=== PATIENT | female | born 1980 | race Asian ===

== ENCOUNTER 2017-09-19 23:50 | Emergency (ER) | payer MEDICAID ==
[~2017-09-19] VITALS: Ht 154.9 cm; Wt 54.0 kg
[2017-09-20 01:37] LABS: ANION GAP 11 mmol/L (8-16); CALCIUM, TOTAL 9.5 mg/dL (8.8-10.5); CARBON DIOXIDE 26 mmol/L (22-29); CHLORIDE 99 mmol/L (98-107); CREATININE 1.39 mg/dL (0.60-1.30); GLOMERULAR FILTR. RATE CALC 42 mL/min (>60); GLUCOSE,RANDOM 131 mg/dL (70-110); POTASSIUM 3.8 mmol/L (3.5-5.1); SODIUM SERUM 136 mmol/L (136-145); UREA NITROGEN, BLOOD 20 mg/dL (7-18)
[2017-09-20 01:42] LABS: BASOPHILS % (AUTO) 0.3 % (0.0-2.0); EOSINOPHILS % (AUTO) 0.1 % (1.0-6.0); HEMATOCRIT 44.8 % (36-46); HEMOGLOBIN 15.6 g/dL (12.0-16.0); LYMPHOCYTES # (AUTO) 1.2 K/uL (1.0-4.8); LYMPHOCYTES % (AUTO) 10.1 % (22.0-44.0); MEAN CORPUSCULAR HEMOGLOBIN 31.8 pg (26.0-34.0); MEAN CORPUSCULAR HGB CONC 34.9 G/dL (31.0-37.0); MEAN CORPUSCULAR VOLUME 91 fL (80-100); MONOCYTES % (AUTO) 8.9 % (2.0-9.0); NEUTROPHILS # (AUTO) 9.3 K/uL (1.8-7.7); NEUTROPHILS % (AUTO) 80.6 % (40.0-70.0); PLATELET COUNT (AUTO) 215 K/uL (150-450); RED BLOOD CELL COUNT(AUTO) 4.93 MIL/uL (4.00-5.20); RED CELL DISTRIBUTION WIDTH 13.6 % (11.5-14.5)
[2017-09-20 01:43] LABS: ALANINE AMINOTRANSFERASE 24 U/L (12-78); ALBUMIN 4.8 g/dL (3.4-5.0); ALKALINE PHOSPHATASE 69 U/L (46-116); ASPARTATE AMINOTRANSFERASE 20 U/L (15-37); TOTAL PROTEIN, SERUM 8.7 g/dL (6.4-8.2)
[2017-09-20 03:07] LABS: AMPHET/METH SCREEN,URINE POSITIVE (NEGATIVE); BARBITURATE SCREEN, URINE NEGATIVE (NEGATIVE); BENZODIAZEPINES SCREEN,URINE NEGATIVE (NEGATIVE); CANNABINOID SCREEN,URINE NEGATIVE (NEGATIVE); COCAINE SCREEN,URINE NEGATIVE (NEGATIVE); METHADONE SCREEN, URINE NEGATIVE (NEGATIVE); OPIATE SCREEN,URINE NEGATIVE (NEGATIVE)
[2017-09-20 03:08] LABS: PHENCYCLIDINE SCREEN,URINE NEGATIVE (NEGATIVE)
[2017-09-20 04:31] VITALS: BP 131/75
== END 2017-09-20 06:07 | disposition home or self-care (01) ==
LOC: EMS 23:51
DX: F41.9 Anxiety disorder, unspecified (principal); R45.851 Suicidal ideations; F15.10 Other stimulant abuse, uncomplicated; I10 Essential (primary) hypertension; F32.9 Major depressive disorder, single episode, unspecified; F17.210 Nicotine dependence, cigarettes, uncomplicated
CPT/HCPCS: 36415; 80053; 80307; 84703; 85025; 99285; 99406; G0480

== ENCOUNTER 2018-02-03 22:23 | Inpatient (IN) | payer MEDICAID ==
[~2018-02-03] VITALS: Ht 160 cm; Wt 60.5 kg
[2018-02-03 22:47] LABS: BASOPHILS % (AUTO) 0.6 % (0.0-2.0); EOSINOPHILS % (AUTO) 0.6 % (1.0-6.0); HEMATOCRIT 44.2 % (36-46); HEMOGLOBIN 15.4 g/dL (12.0-16.0); LYMPHOCYTES # (AUTO) 2.2 K/uL (1.0-4.8); LYMPHOCYTES % (AUTO) 24.9 % (22.0-44.0); MEAN CORPUSCULAR HEMOGLOBIN 32.6 pg (26.0-34.0); MEAN CORPUSCULAR VOLUME 93 fL (80-100); MONOCYTES # (AUTO) 0.5 K/uL (0.1-1.0); MONOCYTES % (AUTO) 5.4 % (2.0-9.0); NEUTROPHILS # (AUTO) 6.1 K/uL (1.8-7.7); NEUTROPHILS % (AUTO) 68.5 % (40.0-70.0); PLATELET COUNT (AUTO) 257 K/uL (150-450); RED BLOOD CELL COUNT(AUTO) 4.73 MIL/uL (4.00-5.20)
[2018-02-03 22:55] LABS: CALCIUM, TOTAL 9.7 mg/dL (8.8-10.5); CREATININE 1.21 mg/dL (0.60-1.30)
[2018-02-03 23:01] LABS: ALBUMIN 4.4 g/dL (3.4-5.0); BILIRUBIN,TOTAL 0.6 mg/dL (0.1-1.0); TOTAL PROTEIN, SERUM 8.4 g/dL (6.4-8.2)
[2018-02-03 23:08] LABS: AMPHET/METH SCREEN,URINE NEGATIVE (NEGATIVE); BARBITURATE SCREEN, URINE NEGATIVE (NEGATIVE); BENZODIAZEPINES SCREEN,URINE NEGATIVE (NEGATIVE); CANNABINOID SCREEN,URINE NEGATIVE (NEGATIVE); COCAINE SCREEN,URINE NEGATIVE (NEGATIVE); METHADONE SCREEN, URINE NEGATIVE (NEGATIVE); OPIATE SCREEN,URINE NEGATIVE (NEGATIVE); PHENCYCLIDINE SCREEN,URINE NEGATIVE (NEGATIVE)
[2018-02-03] MEDS ORDERED: LORazepam 1 MG TABLET PO ONE (23:45)
[2018-02-03] MEDS ORDERED: POTASSIUM CHLORIDE 20 MEQ ER TABLET PO ONE (23:45)
[2018-02-03] MEDS ORDERED: LORazepam 2 MG TABLET PO PRN (23:45)
[2018-02-03] MEDS ORDERED: ZOLPIDEM TARTRATE 10 MG TABLET PO PRN (23:45)
[2018-02-03] MEDS ORDERED: HALOPERIDOL 5 MG TABLET PO PRN (23:45)
[2018-02-04 00:02] LABS: HEMOGLOBIN A1C 5.4 % (4.5-6.2)
[2018-02-04 00:11] LABS: CHOL/HDL RATIO 3.2 (3.9-5.7); FREE T4 (FREE THYROXINE) 1.15 ng/dL (0.76-1.46); THYROID STIMULATING HORMONE 2.22 uIU/mL (0.36-3.74)
[2018-02-04 03:42] VITALS: BP 156/95
[2018-02-04] MEDS ORDERED: ACETAMINOPHEN 325 MG TABLET PO PRN (06:15)
[2018-02-04] MEDS ORDERED: PETROLATUM,WHITE 71 GM JELLY TP PRN (06:15)
[2018-02-04] MEDS ORDERED: CloNIDine HCL 0.1 MG TABLET PO PRN (06:15)
[2018-02-04] MEDS ORDERED: MAGNESIUM HYDROXIDE SUSPENSION 30 ML UDCUP PO PRN (06:15)
[2018-02-04] MEDS ORDERED: MAG HYDROX/AL HYDROX/SIMETH ES 30 ML SUSPENSION UDCUP PO PRN (06:15)
[2018-02-04] MEDS ORDERED: ALBUTEROL SULFATE HFA 90 MCG/PUFF 8 GM INHALER IH PRN (06:15)
[2018-02-04] MEDS ORDERED: NICOTINE 14 MG/24 HOUR PATCH TD PRN (06:15)
[2018-02-04] MEDS ORDERED: GuaiFENesin/D-METHORPHAN [SUGAR-FREE] 200-20MG/10 ML SYRUP UDCUP PO PRN (06:15)
[2018-02-04] MEDS ORDERED: DOCUSATE SODIUM 100 MG CAPSULE PO PRN (06:15)
[2018-02-04] MEDS ORDERED: IBUPROFEN 400 MG TABLET PO PRN (06:15)
[2018-02-04] MEDS ORDERED: ONDANSETRON HCL 4 MG TABLET PO PRN (06:15)
[2018-02-04] MEDS ORDERED: LOPERAMIDE HCL 2 MG CAPSULE PO PRN (06:15)
[2018-02-04 08:19] VITALS: BP 181/110
[2018-02-04 09:19] VITALS: BP 147/97
[2018-02-04 21:07] VITALS: BP 142/95
[2018-02-05 06:12] VITALS: BP 148/102
[2018-02-05 08:00] VITALS: BP 147/111
[2018-02-05] MEDS: AmLODIPine BESYLATE 5 MG TABLET PO SCH (08:31)
[2018-02-05] MEDS: BuPROPion HCL XL 150 MG ER TABLET PO SCH (13:18)
[2018-02-05 18:02] VITALS: BP 163/97
[2018-02-05 19:05] VITALS: BP 142/83
[2018-02-06 08:05] VITALS: BP 135/95
[2018-02-06] MEDS: BuPROPion HCL XL 150 MG ER TABLET PO SCH (08:31)
[2018-02-06] MEDS: AmLODIPine BESYLATE 5 MG TABLET PO SCH (08:31)
[2018-02-06 19:52] VITALS: BP 150/95
[2018-02-07 08:05] VITALS: BP 144/80
[2018-02-07] MEDS: BuPROPion HCL XL 150 MG ER TABLET PO SCH (09:05)
[2018-02-07] MEDS: AmLODIPine BESYLATE 5 MG TABLET PO SCH (09:19)
[2018-02-07 20:28] VITALS: BP 149/104
[2018-02-08 08:15] VITALS: BP 144/104
[2018-02-08] MEDS: BuPROPion HCL XL 150 MG ER TABLET PO SCH (10:39)
[2018-02-08] MEDS: AmLODIPine BESYLATE 5 MG TABLET PO SCH (10:39)
[2018-02-08] MEDS ORDERED: BUPR-93 PO (13:46)
[2018-02-08] MEDS ORDERED: AMLO-511 PO (13:47)
== END 2018-02-08 15:45 | disposition home or self-care (01) | DRG 751 ==
LOC: EMS 22:27 → 3EI 02-04 00:30
PROVIDERS: ADMIT Psychiatry & Neurology Psychiatry; ATTEND Psychiatry & Neurology Psychiatry
DX: F33.2 Major depressive disorder, recurrent severe without psychotic features (principal); R45.851 Suicidal ideations; E78.5 Hyperlipidemia, unspecified; E87.6 Hypokalemia; F17.200 Nicotine dependence, unspecified, uncomplicated; I10 Essential (primary) hypertension; M10.9 Gout, unspecified; S61.511A Laceration without foreign body of right wrist, initial encounter; S61.512A Laceration without foreign body of left wrist, initial encounter; X78.9XXA Intentional self-harm by unspecified sharp object, initial encounter; F19.10 Other psychoactive substance abuse, uncomplicated; F60.3 Borderline personality disorder; F12.90 Cannabis use, unspecified, uncomplicated; F15.90 Other stimulant use, unspecified, uncomplicated; F41.9 Anxiety disorder, unspecified; Z79.899 Other long term (current) drug therapy; Z71.51 Drug abuse counseling and surveillance of drug abuser; Z71.6 Tobacco abuse counseling
CPT/HCPCS: 83036; 84132; 84439; 84443; 99285; G0480

== ENCOUNTER 2018-08-29 21:27 | Inpatient (IN) | payer MEDICAID ==
[~2018-08-29] VITALS: Ht 154.9 cm; Wt 59.0 kg
[~2018-08-29 21:27] MED LIST: AMLO-511 PO; BUPR-93 PO
[2018-08-29 22:52] LABS: BASOPHILS % (AUTO) 0.6 % (0.0-2.0); EOSINOPHILS % (AUTO) 1.1 % (1.0-6.0); HEMATOCRIT 45.7 % (36-46); HEMOGLOBIN 15.4 g/dL (12.0-16.0); LYMPHOCYTES # (AUTO) 1.8 K/uL (1.0-4.8); LYMPHOCYTES % (AUTO) 26.6 % (22.0-44.0); MEAN CORPUSCULAR HEMOGLOBIN 30.8 pg (26.0-34.0); MEAN CORPUSCULAR HGB CONC 33.6 G/dL (31.0-37.0); MEAN CORPUSCULAR VOLUME 92 fL (80-100); MONOCYTES # (AUTO) 0.6 K/uL (0.1-1.0); MONOCYTES % (AUTO) 8.2 % (2.0-9.0); NEUTROPHILS # (AUTO) 4.3 K/uL (1.8-7.7); NEUTROPHILS % (AUTO) 63.5 % (40.0-70.0); PLATELET COUNT (AUTO) 240 K/uL (150-450); RED BLOOD CELL COUNT(AUTO) 4.98 MIL/uL (4.00-5.20)
[2018-08-29 23:05] LABS: ANION GAP 11 mmol/L (8-16); CARBON DIOXIDE 26 mmol/L (22-29); CHLORIDE 101 mmol/L (98-107); CREATININE 1.27 mg/dL (0.60-1.30); GLOMERULAR FILTR. RATE CALC 47 mL/min (>60); GLUCOSE,RANDOM 130 mg/dL (70-110); POTASSIUM 3.2 mmol/L (3.5-5.1); SODIUM SERUM 138 mmol/L (136-145); UREA NITROGEN, BLOOD 22 mg/dL (7-18)
[2018-08-29 23:08] LABS: AMPHET/METH SCREEN,URINE POSITIVE (NEGATIVE); BARBITURATE SCREEN, URINE NEGATIVE (NEGATIVE); BENZODIAZEPINES SCREEN,URINE NEGATIVE (NEGATIVE); CANNABINOID SCREEN,URINE NEGATIVE (NEGATIVE); COCAINE SCREEN,URINE NEGATIVE (NEGATIVE); METHADONE SCREEN, URINE NEGATIVE (NEGATIVE); OPIATE SCREEN,URINE NEGATIVE (NEGATIVE)
[2018-08-29 23:10] LABS: PHENCYCLIDINE SCREEN,URINE NEGATIVE (NEGATIVE)
[2018-08-29 23:12] LABS: ALANINE AMINOTRANSFERASE 14 U/L (12-78); ALBUMIN 4.1 g/dL (3.4-5.0); ALKALINE PHOSPHATASE 64 U/L (46-116); ASPARTATE AMINOTRANSFERASE 16 U/L (15-37); BILIRUBIN,TOTAL 0.7 mg/dL (0.1-1.0); TOTAL PROTEIN, SERUM 7.8 g/dL (6.4-8.2)
[2018-08-29] MEDS ORDERED: POTASSIUM CHLORIDE 20 MEQ ER TABLET PO ONE (23:15)
[2018-08-29] MEDS ORDERED: LORazepam 2 MG/ML VIAL IM ONE (23:30)
[2018-08-29] MEDS ORDERED: HALOPERIDOL 5 MG TABLET PO PRN (23:45)
[2018-08-30 00:11] LABS: CHOL/HDL RATIO 4.8 (3.9-5.7); CHOLESTEROL 233 mg/dL (131-200); FREE T4 (FREE THYROXINE) 1.35 ng/dL (0.76-1.46); HDL CHOLESTEROL 49 mg/dL (40-60); LDL CHOL (CALC.) 162 mg/dL (0-130); THYROID STIMULATING HORMONE 0.82 uIU/mL (0.36-3.74); TRIGLYCERIDES 112 mg/dL (15-150)
[2018-08-30] MEDS ORDERED: PNEUMOCOCCAL VACCINE POLYVALENT 0.5 ML VIAL [PPSV23] IM ONE (03:30)
[2018-08-30] MEDS ORDERED: LOPERAMIDE HCL 2 MG CAPSULE PO PRN (05:30)
[2018-08-30] MEDS ORDERED: PETROLATUM,WHITE 28 GM JELLY TP PRN (05:30)
[2018-08-30] MEDS ORDERED: MAGNESIUM HYDROXIDE SUSPENSION 30 ML UDCUP PO PRN (05:30)
[2018-08-30] MEDS ORDERED: ALBUTEROL SULFATE HFA 90 MCG/PUFF 8 GM INHALER IH PRN (05:30)
[2018-08-30] MEDS ORDERED: MAG HYDROX/AL HYDROX/SIMETH ES 30 ML SUSPENSION UDCUP PO PRN (05:30)
[2018-08-30] MEDS ORDERED: IBUPROFEN 600 MG TABLET PO PRN (05:30)
[2018-08-30] MEDS ORDERED: BACITRACIN 28.4 GM OINTMENT TP PRN (05:30)
[2018-08-30] MEDS ORDERED: ONDANSETRON HCL 4 MG TABLET PO PRN (05:30)
[2018-08-30] MEDS ORDERED: BENZOCAINE/MENTHOL LOZENGE MM PRN (05:30)
[2018-08-30] MEDS ORDERED: ACETAMINOPHEN 325 MG TABLET PO PRN (05:30)
[2018-08-30] MEDS ORDERED: CloNIDine HCL 0.1 MG TABLET PO PRN (05:30)
[2018-08-30 06:17] VITALS: BP 125/83
[2018-08-30 08:00] VITALS: BP 141/78
[2018-08-30] MEDS: OMEPRAZOLE 20 MG CAPSULE PO SCH (08:23)
[2018-08-30] MEDS: DOCUSATE SODIUM 100 MG CAPSULE PO SCH (08:24)
[2018-08-30] MEDS: LORazepam 2 MG TABLET PO PRN (09:02)
[2018-08-30 17:39] VITALS: BP 139/75
[2018-08-31 00:27] VITALS: BP 120/85
[2018-08-31 08:52] VITALS: BP 123/90
[2018-08-31] MEDS: DOCUSATE SODIUM 100 MG CAPSULE PO SCH (09:23)
[2018-08-31] MEDS: AmLODIPine BESYLATE 5 MG TABLET PO SCH (09:24)
[2018-08-31] MEDS: OMEPRAZOLE 20 MG CAPSULE PO SCH (09:24)
[2018-08-31 16:20] VITALS: BP 133/88
[2018-09-01 05:49] VITALS: BP 118/82
[2018-09-01 08:00] VITALS: BP 103/79
[2018-09-01] MEDS: OMEPRAZOLE 20 MG CAPSULE PO SCH (08:59)
[2018-09-01] MEDS: AmLODIPine BESYLATE 5 MG TABLET PO SCH (08:59)
[2018-09-01] MEDS: DOCUSATE SODIUM 100 MG CAPSULE PO SCH (08:59)
[2018-09-01] MEDS: BuPROPion HCL XL 150 MG ER TABLET PO SCH (10:23)
[2018-09-01 16:16] VITALS: BP 120/81
[2018-09-01] MEDS: ZOLPIDEM TARTRATE 10 MG TABLET PO PRN (21:04)
[2018-09-02 06:19] VITALS: BP 141/90
[2018-09-02 08:31] VITALS: BP 140/95
[2018-09-02] MEDS: DOCUSATE SODIUM 100 MG CAPSULE PO SCH (08:38)
[2018-09-02] MEDS: BuPROPion HCL XL 150 MG ER TABLET PO SCH (08:38)
[2018-09-02] MEDS: AmLODIPine BESYLATE 5 MG TABLET PO SCH (08:38)
[2018-09-02] MEDS: OMEPRAZOLE 20 MG CAPSULE PO SCH (08:38)
[2018-09-02 16:05] VITALS: BP 126/82
[2018-09-02] MEDS: ZOLPIDEM TARTRATE 10 MG TABLET PO PRN (20:53)
[2018-09-03 00:09] VITALS: BP 118/76
[2018-09-03] MEDS: BuPROPion HCL XL 150 MG ER TABLET PO SCH (08:40)
[2018-09-03] MEDS: OMEPRAZOLE 20 MG CAPSULE PO SCH (08:40)
[2018-09-03] MEDS: DOCUSATE SODIUM 100 MG CAPSULE PO SCH (08:40)
[2018-09-03] MEDS: AmLODIPine BESYLATE 5 MG TABLET PO SCH (08:40)
[2018-09-03 09:29] VITALS: BP 139/88
[2018-09-03 12:45] VITALS: BP 125/92
[2018-09-03] MEDS: LORazepam 2 MG TABLET PO PRN (16:49)
[2018-09-03 17:42] VITALS: BP 156/114
[2018-09-03 18:42] VITALS: BP 137/86
[2018-09-04 06:50] VITALS: BP 121/80
[2018-09-04 08:55] VITALS: BP 125/84
[2018-09-04] MEDS: DOCUSATE SODIUM 100 MG CAPSULE PO SCH (08:55)
[2018-09-04] MEDS: BuPROPion HCL XL 150 MG ER TABLET PO SCH (08:55)
[2018-09-04] MEDS: AmLODIPine BESYLATE 5 MG TABLET PO SCH (08:55)
[2018-09-04] MEDS: OMEPRAZOLE 20 MG CAPSULE PO SCH (08:55)
[2018-09-04 16:14] VITALS: BP 122/97
[2018-09-04] MEDS: ZOLPIDEM TARTRATE 10 MG TABLET PO PRN (21:20)
[2018-09-05 05:32] VITALS: BP 132/89
[2018-09-05 08:00] VITALS: BP 140/105
[2018-09-05] MEDS: AmLODIPine BESYLATE 5 MG TABLET PO SCH (08:38)
[2018-09-05] MEDS: DOCUSATE SODIUM 100 MG CAPSULE PO SCH (08:38)
[2018-09-05] MEDS: BuPROPion HCL XL 150 MG ER TABLET PO SCH (08:39)
[2018-09-05] MEDS: OMEPRAZOLE 20 MG CAPSULE PO SCH (08:39)
[2018-09-05 09:41] VITALS: BP 125/91
[2018-09-05] MEDS ORDERED: AMLO-511 PO (09:52)
[2018-09-05] MEDS ORDERED: BUPR-93 PO (09:52)
== END 2018-09-05 13:30 | disposition home or self-care (01) | DRG 754 ==
LOC: EMS 21:28 → B2S 08-30 00:55
PROVIDERS: ADMIT Psychiatry & Neurology Psychiatry; ATTEND Psychiatry & Neurology Psychiatry
DX: F32.9 Major depressive disorder, single episode, unspecified (principal); R45.851 Suicidal ideations; F22 Delusional disorders; E78.5 Hyperlipidemia, unspecified; I10 Essential (primary) hypertension; G47.00 Insomnia, unspecified; F17.210 Nicotine dependence, cigarettes, uncomplicated; F41.9 Anxiety disorder, unspecified; M10.9 Gout, unspecified; Z56.0 Unemployment, unspecified; Z90.49 Acquired absence of other specified parts of digestive tract
CPT/HCPCS: 83036; 84132; 84439; 84443; 96372; G0480; J2060